=== PATIENT | female | born 1995 | race Caucasian/White ===

== ENCOUNTER 2017-02-22 00:14 | Emergency (ER) | payer BC ==
[2017-02-22 00:48] VITALS: BP 105/63
--- NOTE | 2017-02-22 01:22 | EDM.PDOC ---
ED HPI GENERAL MEDICAL PROBLEM - General Chief Complaint: Genitourinary Problem Stated Complaint: ABD PAIN Time Seen by Provider: 02/22/17 01:19 Source of Information: Reports: Patient, Family History Limitations: Reports: No Limitations - History of Present Illness INITIAL COMMENTS - FREE TEXT/NARRATIVE: in the last 2 hours she has had severe suprapupic pain. She is having burning when she passes her urine. She had her period about 2 weeks ago. Onset: Gradual, Other ( got suddenly worse. ) Duration: Hour(s): Location: Reports: Abdomen Associated Symptoms: Reports: Other (pt has not had a bm for 2 days. ) Lower Abdomen Pain Score (Numeric/FACES): 4 - Related Data Allergies Allergy/AdvReac Type Severity Reaction Status Date / Time No Known Allergies Allergy Verified 02/22/17 00:49 Home Meds: Home Meds NK [No Known Home Meds] 02/22/17 [History] Past Medical History - Past Surgical History HEENT Surgical History: Reports: Adenoidectomy, Tonsillectomy Social & Family History - Tobacco Use Smoking Status *Q: Never Smoker Second Hand Smoke Exposure: No - Caffeine Use Caffeine Use: Reports: Coffee Other Caffeine Use: 2 cups per day - Recreational Drug Use Recreational Drug Use: No ED ROS GENERAL - Review of Systems Review Of Systems: See Below Constitutional: Reports: No Symptoms HEENT: Reports: No Symptoms Respiratory: Reports: No Symptoms Cardiovascular: Reports: No Symptoms Endocrine: Reports: No Symptoms GI/Abdominal: Reports: Abdominal Pain, Constipation, Nausea, Other (pt has vomited twice. ) : Reports: Dysuria, Pain Musculoskeletal: Reports: No Symptoms Skin: Reports: No Symptoms Neurological: Reports: No Symptoms Psychiatric: Reports: No Symptoms ED EXAM, GI/ABD - Physical Exam Exam: See Below Text/Narrative:: pt has been having lower abdomanal pain. She has had increased pain when she voids. She is not voiding more frequently. She does drink alot of water. She has just had finals ans has been stressed and off schedule. Exam Limited By: No Limitations General Appearance: Alert, Moderate Distress Ears: Normal External Exam Nose: Normal Inspection Throat/Mouth: Normal Inspection Head: Atraumatic Neck: Normal Inspection Respiratory/Chest: No Respiratory Distress Cardiovascular: Regular Rate, Rhythm GI/Abdominal: Other (pt has some generalized tenderness acxross the lower abdoman. She is tender but is not guarding. ) Rectal (Female) Exam: Other ( no masses were present ans she did not have a large build up of stool. ) Back Exam: Normal Inspection Neurological: Alert, Oriented Course - Vital Signs Last Recorded V/S: Last Vital Signs Temp 37.1 C 02/22/17 00:46 Pulse 87 02/22/17 00:46 Resp 16 02/22/17 00:46 BP 105/63 02/22/17 00:46 Pulse Ox 98 02/22/17 00:46 - Orders/Labs/Meds Orders: Active Orders 24 hr Category Date Time Status Bladder Scan [RC] ONETIME Care 02/22/17 01:17 Active Abdomen 2V AP Flat Upright [CR] Stat Exams 02/22/17 01:23 Taken CULTURE URINE [RM] Stat Lab 02/22/17 01:35 Received Labs: Laboratory Tests 02/22/17 02/22/17 02/22/17 Range/Units 01:05 01:18 01:20 WBC 10.3 (4.5-11.0) K/uL RBC 4.60 (3.30-5.50) M/uL Hgb 12.9 (12.0-15.0) g/dL Hct 39.0 (36.0-48.0) % MCV 85 (80-98) fL MCH 28 (27-31) pg MCHC 33 (32-36) % Plt Count 192 (150-400) K/uL Neut % (Auto) 75 H (36-66) % Lymph % (Auto) 16 L (24-44) % [place] % (Auto) 8 H (2-6) % Eos % (Auto) 1 L (2-4) % Baso % (Auto) 0 (0-1) % Sodium (140-148) mmol/L Potassium (3.6-5.2) mmol/L Chloride (100-108) mmol/L Carbon Dioxide (21-32) mmol/L Anion Gap (5.0-14.0) mmol/L BUN (7-18) mg/dL Creatinine (0.6-1.0) mg/dL Est Cr Clr Drug Dosing mL/min Estimated GFR (MDRD) (>60) Glucose (74-106) mg/dL Calcium (8.5-10.1) mg/dL Total Bilirubin (0.2-1.0) mg/dL AST (15-37) U/L ALT (12-78) U/L Alkaline Phosphatase (46-116) U/L C-Reactive Protein 0.07 (0.0-0.3) mg/dL Total Protein (6.4-8.2) g/dL Albumin (3.4-5.0) g/dL Globulin (2.3-3.5) g/dL Albumin/Globulin Ratio (1.2-2.2) Urine Color Yellow Urine Appearance Slightly cloudy Urine pH 6.0 (4.5-8.0) Ur Specific [place] 1.020 (1.008-1.030) Urine Protein Negative (NEGATIVE) mg/dL Urine Glucose (UA) Normal (NEGATIVE) mg/dL Urine Ketones Negative (NEGATIVE) mg/dL Urine Occult Blood Negative (NEGATIVE) Urine Nitrite Negative (NEGATIVE) Urine Bilirubin Negative (NEGATIVE) Urine Urobilinogen Normal (NORMAL) mg/dL Ur Leukocyte Esterase Negative (NEGATIVE) Urine RBC Not seen (0-5) Urine WBC 0-5 (0-5) Ur Epithelial Cells Rare Amorphous Sediment Not seen Urine Bacteria Moderate Urine Mucus Not seen Urine HCG, Qual 02/22/17 02/22/17 Range/Units 01:20 01:35 WBC (4.5-11.0) K/uL RBC (3.30-5.50) M/uL Hgb (12.0-15.0) g/dL Hct (36.0-48.0) % MCV (80-98) fL MCH (27-31) pg MCHC (32-36) % Plt Count (150-400) K/uL Neut % (Auto) (36-66) % Lymph % (Auto) (24-44) % [place] % (Auto) (2-6) % Eos % (Auto) (2-4) % Baso % (Auto) (0-1) % Sodium 139 L (140-148) mmol/L Potassium 3.7 (3.6-5.2) mmol/L Chloride 102 (100-108) mmol/L Carbon Dioxide 27 (21-32) mmol/L Anion Gap 13.7 (5.0-14.0) mmol/L BUN 17 (7-18) mg/dL Creatinine 0.8 (0.6-1.0) mg/dL Est Cr Clr Drug Dosing 101.78 mL/min Estimated GFR (MDRD) > 60 (>60) Glucose 103 (74-106) mg/dL Calcium 8.3 L (8.5-10.1) mg/dL Total Bilirubin 0.3 (0.2-1.0) mg/dL AST 17 (15-37) U/L ALT 22 (12-78) U/L Alkaline Phosphatase 54 (46-116) U/L C-Reactive Protein (0.0-0.3) mg/dL Total Protein 7.3 (6.4-8.2) g/dL Albumin 4.1 (3.4-5.0) g/dL Globulin 3.2 (2.3-3.5) g/dL Albumin/Globulin Ratio 1.3 (1.2-2.2) Urine Color Urine Appearance Urine pH (4.5-8.0) Ur Specific [place] (1.008-1.030) Urine Protein (NEGATIVE) mg/dL Urine Glucose (UA) (NEGATIVE) mg/dL Urine Ketones (NEGATIVE) mg/dL Urine Occult Blood (NEGATIVE) Urine Nitrite (NEGATIVE) Urine Bilirubin (NEGATIVE) Urine Urobilinogen (NORMAL) mg/dL Ur Leukocyte Esterase (NEGATIVE) Urine RBC (0-5) Urine WBC (0-5) Ur Epithelial Cells Amorphous Sediment Urine Bacteria Urine Mucus Urine HCG, Qual Negative - Re-Assessments/Exams Free Text/Narrative Re-Assessment/Exam: 02/22/17 02:11 wbc, crp, and chems look good. Her urine does not reveal a large number of wbcs , there is some bacteria. A culture was set up. A flat and upright of the abdoman was gotten which shows a large amount of stool in the rt colon. Departure - Departure Time of Disposition: 02:12 Disposition: Home, Self-Care 01 Condition: fair Clinical Impression: Constipation, UTI (urinary tract infection) - Discharge Information Forms: ED Department Discharge Care Plan Goals: urine culture pending, cipro 500mg bid for 7 days, push fluids, high fiber diet , cont stool softners, gummy fibers 2-3 daily. - My Orders Last 24 Hours: My Active Orders 02/22/17 01:17 Bladder Scan [RC] ONETIME 02/22/17 01:23 Abdomen 2V AP Flat Upright [CR] Stat 02/22/17 01:35 CULTURE URINE [RM] Stat - Assessment/Plan Last 24 Hours: My Active Orders 02/22/17 01:17 Bladder Scan [RC] ONETIME 02/22/17 01:23 Abdomen 2V AP Flat Upright [CR] Stat 02/22/17 01:35 CULTURE URINE [RM] Stat
[2017-02-22] MEDS ORDERED: Magnesium Citrate Solution 296 ML Bottle PO ONE (02:14)
--- NOTE | 2017-02-24 08:49 | CR ---
Abdomen 2V AP Flat Upright HISTORY: pain in the lower abdomen. FINDINGS: Bowel gas pattern is nonspecific. No obstruction or free air is identified. No soft tissue mass, org anomegaly, or abnormal calcifications are seen. Bony structures are unremarkable. IMPRESSION: Nonspecific abdomen.
== END 2017-02-22 02:40 | disposition home or self-care (01) ==
LOC: JP.ED 00:14
DX: N39.0 Urinary tract infection, site not specified (principal); K59.00 Constipation, unspecified; Z98.890 Other specified postprocedural states
CPT/HCPCS: 36415; 74020; 80053; 81001; 81025; 85025; 86140; 87086; 87088; 87186; 99284; A9270